=== PATIENT | female | born 1975 | race African-American/Black ===

== ENCOUNTER 2020-08-12 14:12 | Emergency (ER) | payer BC, OTHER ==
[~2020-08-12] VITALS: Ht 167.6 cm; Wt 148.3 kg
[2020-08-12 14:26] LABS: URINE BILIRUBIN NEGATIVE (Negative); URINE BLOOD NEGATIVE (Negative); URINE COLOR YELLOW; URINE GLUCOSE-RANDOM NEGATIVE (Negative); URINE KETONES NEGATIVE (Negative); URINE LEUKOCYTES-REFLEX TRACE (Negative); URINE NITRITE-REFLEX NEGATIVE (Negative); URINE PROTEIN NEGATIVE (Negative); URINE UROBILINOGEN 0.2 E.U./dl (0.2-1.0)
[2020-08-12 14:31] LABS: URINE CLARITY HAZY
[2020-08-12 14:40] LABS: BACTERIA-REFLEX 1-9 Few /HPF (None Seen); CASTS None Seen /LPF (None Seen); CRYSTALS None Seen /LPF (None Seen); SQUAMOUS 0-3 Few /LPF (0-3); URINE RBC 0-2 Rare /HPF (0-2); URINE WBC-REFLEX 0-5 Rare /HPF (0-5)
[2020-08-12 14:40] LABS: ABSOLUTE EOSINOPHILS 0.2 thou/uL (0.0-0.7); ABSOLUTE LYMPHOCYTES 1.8 thou/uL (0.8-5.3); ABSOLUTE MONOCYTES 0.7 thou/uL (0.0-1.2); ABSOLUTE NEUTROPHILS 4.4 thou/uL (1.6-8.1); BASOPHILS 0.3 %; HEMATOCRIT 27.3 % (37.0-47.0); HEMOGLOBIN 9.2 gm/dL (12.0-15.0); LYMPHOCYTES 25.7 %; MCH 24.8 pg (26.0-34.0); MCHC 33.6 g/dL (28.0-37.0); MCV 73.7 fL (80.0-100.0); MONOCYTES 9.7 %; MPV 7.3 fl. (7.2-11.1); NUCLEATED RBCS 0 /100WBC; PLATELET COUNT* 489 thou/uL (150-400); POLYS 61.3 %; RBC 3.71 mil/uL (4.20-5.00); WBC 7.1 thou/uL (4.0-11.0)
[2020-08-12 14:48] LABS: CALCIUM 8.3 mg/dL (8.5-10.1); CREATININE 0.6 mg/dL (0.6-1.3); POTASSIUM 3.8 mmol/L (3.5-5.1)
[2020-08-12] MEDS ORDERED: TYLENOL325 MG PO (14:56)
[2020-08-12] MEDS ORDERED: CITALOPRAM HBR40 MG PO (14:58)
[2020-08-12] MEDS ORDERED: VITAMIN D310 MC2 PO (14:58)
[2020-08-12] MEDS ORDERED: DICLOFENAC SOD100 G1 (14:59)
[2020-08-12] MEDS ORDERED: FLEXERIL PO (14:59)
[2020-08-12] MEDS ORDERED: VITAMIN D250 MCG PO (14:59)
[2020-08-12 15:00] LABS: ALBUMIN 3.3 g/dL (3.4-5.0); TOTAL BILIRUBIN 0.2 mg/dL (<0.1-1.0); TOTAL PROTEIN 7.4 g/dL (6.4-8.2)
[2020-08-12] MEDS ORDERED: FUROSEMIDE 40 M40 M1 PO (15:00)
[2020-08-12] MEDS ORDERED: FEROSUL325 M1 PO (15:00)
[2020-08-12] MEDS ORDERED: GABAPENTIN600 M1 PO (15:01)
[2020-08-12] MEDS ORDERED: GAS RELIEF80 MG PO (15:02)
[2020-08-12] MEDS ORDERED: ASPERCREME1 EACH TOP (15:02)
[2020-08-12] MEDS ORDERED: MIRALAX17 GM PO (15:03)
[2020-08-12] MEDS ORDERED: ROXICODONE5 M2 PO (15:03)
[2020-08-12] MEDS ORDERED: NAPROSYN500 M1 PO (15:03)
[2020-08-12] MEDS ORDERED: SENNA PLUS TAB1 EACH PO (15:03)
[2020-08-12] MEDS ORDERED: TRILEPTAL600 MG PO (15:04)
[2020-08-12] MEDS ORDERED: CVS SENNA PLUS1 EACH PO (15:04)
[2020-08-12] MEDS ORDERED: CEPHALEXIN500 MG PO (15:24)
[2020-08-12 16:33] VITALS: BP 120/75
--- NOTE | 2020-08-13 11:10 | EKG ---
[place] [address] ELECTROCARDIOGRAM REPORT Name: ELÍAS GLEASON Room: [facility]#: [id number] Admission: 08/12/20 Attend Phys: Discharge: 08/12/20 Date of : 73 Date of Service: 08/12/20 1423 Report #: [id number] THIS REPORT FOR: //name// [facility] ED Test Date: 2020-08-12 Test Time: 14:23:14 Pat Name: ELÍAS GLEASON Department: Room: Gender: F Plate Inspector: PAMELA : 1975 Requested By: Lucien Brown Order Number: [id number] MD: Anish Lees Measurements Intervals [place] Rate: 93 P: 54 WI: 152 QRS: 9 QRSD: 117 T: 18 QT: 374 QTc: 466 Interpretive Statements Sinus rhythm Probable left atrial enlargement Nonspecific intraventricular conduction delay No previous ECG available for comparison Electronically Signed On 08-13-2020 11:10:37 CDT by Anish Lees [email or web address] <ELECTRONICALLY SIGNED> By: Anish Lees MD, [facility] 08/13/20 1110 1423 1423 Anish Lees MD, [facility] /EPI
== END 2020-08-12 16:33 | disposition home or self-care (01) ==
LOC: M.ERS 14:12
PROVIDERS: Family Medicine
DX: R60.0 Localized edema (principal); L53.9 Erythematous condition, unspecified; Z91.040 Latex allergy status; Z88.2 Allergy status to sulfonamides; Z88.1 Allergy status to other antibiotic agents; Z88.8 Allergy status to other drugs, medicaments and biological substances